=== PATIENT | male | born 1955 ===

== ENCOUNTER 2021-03-10 13:26 | Outpatient (NON) | payer MEDICARE, SELFPAY ==
[2021-03-10 13:57] LABS: Hematocrit 25.5 % (42.0-52.0); Hemoglobin 8.2 g/dL (14.0-18.0); Immature Granulocyte Absolute 0.01 K/mm3 (0.00-0.031); Immature Granulocyte Percent A 0.4 % (0-0.5); Immature Platelet Fraction Pct 0.6 % (0.9-11.2); Lymphocytes Absolute Auto 0.54 K/mm3 (0.9-3.2); Lymphocytes Percent Auto 20.1 % (18.3-44.2); Mean Corpuscular HGB Conc 32.2 g/dl (32-36); Mean Corpuscular Hemoglobin 30.4 pg (26-34); Mean Corpuscular Volume 94.4 fl (80-100); Monocytes Absolute Auto 2.1 K/mm3 (0.1-0.6); Monocytes Percent Auto 79.1 % (2.6-8.5); Neutrophils Percent Auto 0.4 % (45.5-73.1); Red Cell Distribution Width 18.3 % (11.5-14.5); White Blood Count 2.7 K/mm3 (4.5-10.0)
[2021-03-10 15:19] LABS: Platelet Count Result 7 k/mm3 (150-375)
== END 2021-03-10 13:27 | disposition home or self-care (01) ==
DX: C92.02 Acute myeloblastic leukemia, in relapse (principal)
CPT/HCPCS: 36415; 85025; 85055